=== PATIENT | male | born 1980 | race Caucasian/White ===

== ENCOUNTER 2016-10-01 15:18 | Emergency (ER) | payer OTHER ==
[~2016-10-01] VITALS: Ht 188 cm; Wt 95.9 kg
[2016-10-01 15:32] VITALS: BP 113/46
[2016-10-01] MEDS ORDERED: MORPHINE SULFATE 10 MG/ML SYRINGE. IM ONE (16:00)
--- NOTE | 2016-10-01 16:11 | RAD ---
Indication pain. AP oblique and lateral views of the right knee were obtained. There is considerable soft tissue swelling over the patella. There are punctate densities, on the lateral view, anterior to the joint. The etiology is unclear. There are probably incidental. Foreign bodies penetrating into the soft tissues could not be entirely excluded but is felt unlikely.. There is a joint effusion. An acute bony finding is not seen.
[2016-10-01] MEDS ORDERED: HYDR-971 PO (16:39)
--- NOTE | 2016-10-01 16:39 | PHYS DOC ---
Past History Past Medical History: No Pertinent History Past Surgical History: Appendectomy Alcohol Use: Occasionally Drug Use: None Adult General Chief Complaint Chief Complaint: KNEE INJURY HPI HPI Patient is a 36-year-old male brought to the ED by a friend with a right knee injury. The patient was playing hockey and he is not exactly sure what happened , something happened to his knee and he went down. He has not been able to fully move his knee since. He thought his kneecap was "dislocated. He has no history of patellar dislocation or significant problems with this knee in the past. Patient went out for a beer with teammates after the game and then decided he would have to come to the ED. Patient is [employer], currently active duty at a school here. He is in good general health with no chronic medical problems. Review of Systems Review of Systems Constitutional: Denies fever or chills [] Respiratory: Denies cough or shortness of breath [] Cardiovascular: Denies chest pain Musculoskeletal: As in history of present illness Neurologic: Denies head injury Current Medications Current Medications Current Medications Medications (Trade) Dose Ordered Sig/Sameer Start Time Stop Time Status Last Admin Dose Admin Morphine Sulfate (Morphine 10mg Syringe) 10 mg 1X ONCE 10/01/16 16:00 10/01/16 16:02 DC 10/01/16 15:51 10 MG Allergies Allergies Allergies Coded Allergies Type Severity Reaction Last Updated Verified No Known Drug Allergies 10/01/16 No Physical Exam Physical Exam Constitutional: Well developed, well nourished, no acute distress, non-toxic appearance. Alert, mentating normally. HENT: Normocephalic, atraumatic, bilateral external ears normal, nose normal. [] Eyes: conjunctiva normal, no discharge. [] Neck: Normal range of motion, no stridor. [] Skin: Warm, dry, no erythema, no rash. [] Extremities: Right lower extremity: There is a large effusion of the right knee. There is a defect below the right patella which may be high riding, hard to evaluate due to the effusion. The patient is not able to extend his lower leg. There is no injury below the knee. Good DP pulse on the right. Neurologic: Alert and oriented X 3, normal motor function, normal sensory function, no focal deficits noted. [] Current Patient Data Vital Signs Vital Signs Date Time Temp Pulse Resp B/P (MAP) Pulse Ox O2 Delivery O2 Flow Rate FiO2 10/01/16 15:51 20 98 Room Air 10/01/16 15:32 85 EKG EKG [] Radiology/Procedures Radiology/Procedures Two-view x-ray of the right knee read by me. There is no bony fracture. The patella is high riding. There is soft tissue swelling and knee effusion present. [] Course & Med Decision Making Course & Med Decision Making Pertinent Labs and Imaging studies reviewed. (See chart for details) 36-year-old male with a right knee injury, appears to have a rupture of the quadriceps patellar tendon. The patient was given pain medication and x-rays were done. The patient is currently active duty [employer] so he will be followed up at [place]. He was placed in a knee immobilizer and crutches. Nonweightbearing, he is to call Monday for follow-up. He was given a disc with his x-rays. [] Dragon Disclaimer Dragon Disclaimer This chart was dictated in whole or in part using Voice Recognition software in a busy, high-work load, and often noisy Emergency Department environment. It may contain unintended and wholly unrecognized errors or omissions. Departure Departure: Impression: Primary Impression: Patellar tendon rupture Disposition: HOME, SELF-CARE Condition: STABLE Additional Instructions: Diagnosis: Quadriceps patellar tendon rupture Wear the knee immobilizer 24 hours a day. You may remove it briefly to shower and then replace it. No weightbearing, use crutches. Elevate and ice your leg/knee. Ice 15-20 minutes out of every 1-2 hours. On Monday, call the medical clinic and make arrangements to see an exchange specialist. Take x-rays with you. For pain, hydrocodone as needed, this is an opiate, will cause sedation and constipation. Scripts Hydrocodone Bit/Acetaminophen (NORCO 5-325 TABLET) 1 Each Tablet 1-2 TAB PO Q4-6HRS for PAIN, #40 TAB Prov: ABEBE HUYNH MD 10/01/16 ABEBE HUYNH MD October 01, 2016 16:39
== END 2016-10-01 16:57 | disposition home or self-care (01) ==
LOC: ER 15:18
DX: S86.811A Strain of other muscle(s) and tendon(s) at lower leg level, right leg, initial encounter (principal); X58.XXXA Exposure to other specified factors, initial encounter; Y93.65 Activity, lacrosse and field hockey; Y92.89 Other specified places as the place of occurrence of the external cause; Y99.0 Civilian activity done for income or pay
CPT/HCPCS: 29505; 73562; 96372; 99284; J2270